=== PATIENT | male | born 1970 | race Caucasian/White ===

== ENCOUNTER 2019-03-24 11:39 | Emergency (ER) | payer BC ==
[~2019-03-24] VITALS: Ht 175.3 cm; Wt 86.2 kg
[2019-03-24] MEDS ORDERED: DEXAMETHASONE SOD PHOS 10 MG/1 ML VIAL IM NR (11:45)
[2019-03-24] MEDS ORDERED: HYDROCODONE/APAP 10MG-325MG TAB PO NR (12:00)
[2019-03-24] MEDS ORDERED: KETOROLAC TROMETHAMINE 30 MG/ML VIAL IM NR (12:00)
--- NOTE | 2019-03-24 12:23 | Diagnostic Imaging Report ---
Left ankle - 3 Image(s) HISTORY: Swollen, rule out fracture COMPARISON: None available. FINDINGS: Bones: No acute displaced fracture. No aggressive osseous lesion. Joints: Osseous alignment is within normal limits and the joint spaces are well-maintained. Soft tissues: Nonspecific soft tissue swelling, lateral greater than medial. IMPRESSION: Nonspecific soft tissue swelling, lateral greater than medial. Signed by: Dr. Bon Tsai D.O., M.M.M. on 03/24/2019 12:19 PM
== END 2019-03-24 12:44 | disposition home or self-care (01) ==
LOC: ER 11:39
DX: M25.572 Pain in left ankle and joints of left foot (principal); M25.472 Effusion, left ankle; M10.072 Idiopathic gout, left ankle and foot
CPT/HCPCS: 73610; 99284; J1100; J1885